=== PATIENT | female | born 1950 | race Caucasian/White ===

== ENCOUNTER 2020-07-25 17:45 | Observation (INO) | payer MEDICARE ==
[~2020-07-25] VITALS: Ht 160 cm; Wt 40.6 kg
--- NOTE | 2020-07-25 18:13 | NUR ---
PT C/O LLQ PAIN, PROBABLE HERNIA. PAIN INCREASING TODAY. HX OF SAME, NO SURGERIES.
[2020-07-25] MEDS ORDERED: MORPHINE SULFATE 4 MG/ML, 1ML ONE ×3 (18:29→20:39)
[2020-07-25] MEDS ORDERED: ONDANSETRON 2MG/ML, 2ML ONE (18:29)
[2020-07-25] MEDS ORDERED: ONDANSETRON 2MG/ML, 2ML IVPush ONE (18:30)
[2020-07-25] MEDS ORDERED: SODIUM CHLORIDE FLUSH 10ML SYR IVF ONE (18:30)
[2020-07-25] MEDS ORDERED: MORPHINE SULFATE 4 MG/ML, 1ML IVPush PRN (18:30)
[2020-07-25] MEDS ORDERED: PLEASE ENTER HEIGHT AND WEIGHT MC SCH (18:30)
[2020-07-25] MEDS: MORPHINE SULFATE 4 MG/ML, 1ML IVPush PRN ×4 (18:33→20:41)
--- NOTE | 2020-07-25 18:40 | NUR ---
PIV PLACED, LABS DRAWN. MEDS ADMIN PER JAN. PROVIDER OK TO GIVE MORPHINE 2MG IV INSTEAD OF 4MG IV, FOR PT SMALL SIZE AND DOESN'T USE ANY NARCOTICS.
--- NOTE | 2020-07-25 19:05 | NUR ---
BREAK RN: UA COLLECTED VIA STRAIGHT CATH. UA ORDERED PER PROTOCOL. PT REQUESTED SECOND MORPHINE 2MG. MEDS ADMIN PER JAN. PT PLACED IN TRENDELENBERG PER PROVIDER REQUEST. WARM BLANKETS PROVIDED. CAREGIVER AT BEDSIDE. REPORT GIVEN TO ROXIE DOUGLAS RN.
[2020-07-25 19:07] LABS: BASOPHILS # (AUTO) 0.03 x10^3/uL (0-0.1); BASOPHILS % (AUTO) 0 % (0-1); EOSINOPHILS # (AUTO) 0.04 x10^3/uL (0-0.4); EOSINOPHILS % (AUTO) 0 % (1-7); LYMPHOCYTES # (AUTO) 1.23 x10^3/uL (1-3.4); LYMPHOCYTES % (AUTO) 12 % (22-44); MD NO; MEAN CORPUSCULAR HEMOGLOBIN 29.5 pg (27.0-34.8); MEAN CORPUSCULAR VOLUME 89.3 fL (80-100); MEAN PLATELET VOLUME 7.5 fL (7.4-10.4); MONOCYTES % (AUTO) 3 % (2-9); NEUTROPHILS # (AUTO) 8.41 x10^3/uL (1.8-6.8); NEUTROPHILS % (AUTO) 84 % (42-75); PLATELET COUNT 527 x10^3/uL (130-400); RED BLOOD COUNT 4.49 x10^6/uL (3.82-5.3); RED CELL DISTRIBUTION WIDTH 14.4 % (9.6-15.2)
--- NOTE | 2020-07-25 19:09 | NUR ---
ASSUMED CARE OF PATIENT. REPORT GIVEN FROM YUDY MUNOZ
[2020-07-25 19:16] LABS: MICROSCOPIC AUTO
[2020-07-25 19:18] LABS: ALANINE AMINOTRANSFERASE 16 U/L (12-78); ALBUMIN 3.6 g/dL (3.4-5.0); ANION GAP 11 mmol/L (5-15); CALCIUM 9.2 mg/dL (8.5-10.1); CHLORIDE 101 mmol/L (98-107); CREATININE 0.54 mg/dL (0.55-1.02)
[2020-07-25 19:20] LABS: ALKALINE PHOSPHATASE 123 U/L (45-117); BILIRUBIN,TOTAL 0.4 mg/dL (0.2-1.0); TOTAL PROTEIN 8.1 g/dL (6.4-8.2)
--- NOTE | 2020-07-25 19:54 | NUR ---
PT MEDICATED FOR 7/10 PAIN. VS STABLE. PT WENT TO CT.
--- NOTE | 2020-07-25 20:31 | NUR ---
DR CANTRELL HAS UPDATED PATIENT.
--- NOTE | 2020-07-25 21:40 | NUR ---
PT USED BED HIGHTOWER. HERNIA WAS REDUCED BY DR CANTRELL. AWARE PT HAS A ELEVATED LACTIC, NO NEW ORDERS AT THIS TIME.
--- NOTE | 2020-07-25 22:30 | NUR ---
HOSPITALIST IN ROOM
[2020-07-25 22:46] VITALS: BP 114/69
[2020-07-25] MEDS ORDERED: OMNIPAQUE 350 MG/ML, 100ML BOTTLE ONE (23:11)
[2020-07-25] MEDS: KETOROLAC 30 MG/1 ML IV PRN (23:24)
[2020-07-25] MEDS ORDERED: LABETALOL 5MG/ML, 20ML IVPush PRN (23:30)
[2020-07-25] MEDS ORDERED: ONDANSETRON 2MG/ML, 2ML IVPush PRN (23:30)
[2020-07-25] MEDS ORDERED: POLYETHYLENE GLYCOL 17 GM PACKET PO PRN (23:30)
[2020-07-25] MEDS ORDERED: morphine SULFATE 10 MG/ML, 1ML IVPush PRN (23:30)
[2020-07-25] MEDS ORDERED: IBUP200C75 PO (23:34)
[2020-07-25] MEDS ORDERED: ACET325T14 PO (23:36)
[2020-07-25] MEDS ORDERED: VITA1TAB19 PO (23:37)
[2020-07-25] MEDS ORDERED: LUTE1CAP PO (23:39)
[2020-07-25] MEDS ORDERED: ZINC100T PO (23:41)
[2020-07-25] MEDS: LACTATED RINGERS 1,000 ML IV SCH (23:50)
[2020-07-26 00:55] VITALS: BP 108/65
[2020-07-26 05:35] LABS: ANION GAP 8 mmol/L (5-15); CALCIUM 8.7 mg/dL (8.5-10.1); CHLORIDE 103 mmol/L (98-107)
[2020-07-26 05:35] LABS: BASOPHILS # (AUTO) 0.03 x10^3/uL (0-0.1); BASOPHILS % (AUTO) 1 % (0-1); EOSINOPHILS # (AUTO) 0.13 x10^3/uL (0-0.4); EOSINOPHILS % (AUTO) 2 % (1-7); LYMPHOCYTES # (AUTO) 2.29 x10^3/uL (1-3.4); LYMPHOCYTES % (AUTO) 37 % (22-44); MD NO; MEAN CORPUSCULAR HEMOGLOBIN 28.9 pg (27.0-34.8); MEAN CORPUSCULAR HGB CONC 32.6 g/dL (32.4-35.8); MEAN CORPUSCULAR VOLUME 88.6 fL (80-100); MEAN PLATELET VOLUME 7.3 fL (7.4-10.4); MONOCYTES # (AUTO) 0.24 x10^3/uL (0.2-0.8); MONOCYTES % (AUTO) 4 % (2-9); NEUTROPHILS # (AUTO) 3.55 x10^3/uL (1.8-6.8); NEUTROPHILS % (AUTO) 57 % (42-75); PLATELET COUNT 444 x10^3/uL (130-400); RED BLOOD COUNT 3.78 x10^6/uL (3.82-5.3); RED CELL DISTRIBUTION WIDTH 14.3 % (9.6-15.2)
[2020-07-26] MEDS: KETOROLAC 30 MG/1 ML IV PRN (05:53)
[2020-07-26 07:42] VITALS: BP 126/69
[2020-07-26] MEDS: LACTATED RINGERS 1,000 ML IV SCH (08:12)
[2020-07-26] MEDS ORDERED: LACTATED RINGERS 1,000 ML IV SCH (13:00)
[2020-07-26 14:03] VITALS: BP 134/77
[2020-07-26] MEDS: ACETAMINOPHEN 325 MG TABLET PO PRN (14:43)
[2020-07-26 19:30] VITALS: BP 113/61
[2020-07-26] MEDS: HEPARIN 5,000 UNITS/ML, 1ML SQ SCH (20:30)
[2020-07-27 01:24] VITALS: BP 127/73
[2020-07-27] MEDS: HEPARIN 5,000 UNITS/ML, 1ML SQ SCH (04:30)
[2020-07-27 05:51] LABS: ALBUMIN 2.6 g/dL (3.4-5.0); ANION GAP 7 mmol/L (5-15); CALCIUM 8.4 mg/dL (8.5-10.1); CHLORIDE 104 mmol/L (98-107)
[2020-07-27 05:54] LABS: BASOPHILS # (AUTO) 0.02 x10^3/uL (0-0.1); BASOPHILS % (AUTO) 0 % (0-1); EOSINOPHILS # (AUTO) 0.14 x10^3/uL (0-0.4); EOSINOPHILS % (AUTO) 2 % (1-7); LYMPHOCYTES # (AUTO) 1.49 x10^3/uL (1-3.4); LYMPHOCYTES % (AUTO) 24 % (22-44); MD NO; MEAN CORPUSCULAR HEMOGLOBIN 29.4 pg (27.0-34.8); MEAN CORPUSCULAR HGB CONC 33.1 g/dL (32.4-35.8); MEAN CORPUSCULAR VOLUME 88.9 fL (80-100); MEAN PLATELET VOLUME 7.4 fL (7.4-10.4); MONOCYTES # (AUTO) 0.26 x10^3/uL (0.2-0.8); MONOCYTES % (AUTO) 4 % (2-9); NEUTROPHILS # (AUTO) 4.19 x10^3/uL (1.8-6.8); NEUTROPHILS % (AUTO) 69 % (42-75); PLATELET COUNT 409 x10^3/uL (130-400); RED BLOOD COUNT 3.58 x10^6/uL (3.82-5.3); RED CELL DISTRIBUTION WIDTH 14.4 % (9.6-15.2)
[2020-07-27 05:55] LABS: ALANINE AMINOTRANSFERASE 11 U/L (12-78); ALKALINE PHOSPHATASE 91 U/L (45-117); BILIRUBIN,TOTAL 0.4 mg/dL (0.2-1.0); CREATININE 0.38 mg/dL (0.55-1.02)
[2020-07-27] MEDS ORDERED: POLY17PO5 PO (07:45)
[2020-07-27] MEDS: ACETAMINOPHEN 325 MG TABLET PO PRN (08:08)
[2020-07-27 08:11] VITALS: BP 137/79
== END 2020-07-27 11:50 | disposition home or self-care (01) ==
LOC: ED 19:30 → INTOOBSV 21:27 → EDIP 21:27 → 4NW 22:44 → 4NE 07-26 05:45 → DCLOUNGE 07-27 11:48
PROVIDERS: ADMIT Family Medicine; ATTEND Internal Medicine
DX: K56.600 Partial intestinal obstruction, unspecified as to cause (principal); K41.90 Unilateral femoral hernia, without obstruction or gangrene, not specified as recurrent; M06.9 Rheumatoid arthritis, unspecified; N83.8 Other noninflammatory disorders of ovary, fallopian tube and broad ligament; D73.5 Infarction of spleen; D47.3 Essential (hemorrhagic) thrombocythemia; R74.0 Nonspecific elevation of levels of transaminase and lactic acid dehydrogenase [LDH]; E87.1 Hypo-osmolality and hyponatremia; E43 Unspecified severe protein-calorie malnutrition; M41.9 Scoliosis, unspecified; Z79.899 Other long term (current) drug therapy; Z68.1 Body mass index [BMI] 19.9 or less, adult
CPT/HCPCS: 36415; 74177; 80048; 80053; 81001; 83605; 83690; 83735; 84100; 85025; 96361; 96374; 96375; 96376; 97162; 99285; G0378; J1885; J2270; J2405; J7120; Q9967

== ENCOUNTER 2020-11-11 09:11 | Emergency (ER) | payer MEDICARE ==
[~2020-11-11] VITALS: Ht 157.5 cm; Wt 41.8 kg
[~2020-11-11 09:11] MED LIST: ACET325T14 PO; IBUP200C75 PO; LUTE1CAP PO; POLY17PO5 PO; VITA1TAB19 PO; ZINC100T PO
[2020-11-11 09:12] VITALS: BP 150/75
== END 2020-11-11 10:04 | disposition home or self-care (01) ==
LOC: ED 09:45
DX: K40.91 Unilateral inguinal hernia, without obstruction or gangrene, recurrent (principal); M19.90 Unspecified osteoarthritis, unspecified site; R10.33 Periumbilical pain
CPT/HCPCS: 99283

== ENCOUNTER 2021-05-11 21:48 | Emergency (ER) | payer MEDICARE ==
[~2021-05-11] VITALS: Ht 154.9 cm; Wt 45.5 kg
--- NOTE | 2021-05-11 22:28 | NUR ---
ERP ABLE TO REDUCE HERNIA AT BEDSIDE. PT STATES FEELING MUCH BETTER. PO ROAD TEST AT THIS TIME. PT PROVIDED MINT TEA AND SOME CRACKERS
[2021-05-11 22:29] VITALS: BP 132/70
--- NOTE | 2021-05-11 22:45 | NUR ---
PT TOLERATING PO FLUIDS AND FOOD AT THIS TIME
--- NOTE | 2021-05-11 23:06 | NUR ---
pt ambulated to restroom with walker, basline for pt
== END 2021-05-11 23:24 | disposition home or self-care (01) ==
LOC: ED 21:57
DX: K41.91 Unilateral femoral hernia, without obstruction or gangrene, recurrent (principal)
CPT/HCPCS: 99283

== ENCOUNTER 2021-06-01 12:40 | Emergency (ER) | payer MEDICARE ==
[~2021-06-01] VITALS: Ht 157.5 cm; Wt 44.0 kg
--- NOTE | 2021-06-01 13:19 | NUR ---
two hours ago hernia popped out causing pain and nausea
[2021-06-01] MEDS ORDERED: MORPHINE SULFATE 4 MG/ML, 1ML ONE ×2 (13:47→14:29)
[2021-06-01] MEDS ORDERED: ONDANSETRON 2MG/ML, 2ML ONE (13:47)
[2021-06-01] MEDS: MORPHINE SULFATE 4 MG/ML, 1ML IVPush PRN ×2 (13:49→14:30)
[2021-06-01] MEDS ORDERED: ONDANSETRON 2MG/ML, 2ML IVPush ONE (14:00)
[2021-06-01] MEDS ORDERED: SODIUM CHLORIDE FLUSH 10ML SYR IVF ONE (14:00)
[2021-06-01] MEDS ORDERED: MORPHINE SULFATE 4 MG/ML, 1ML IVPush ONE (14:30)
--- NOTE | 2021-06-01 14:35 | NUR ---
patient in bed, rails up on monitor. continues to have pain for procedure, medicated again. patient aox4, sister at bedside.
[2021-06-01 14:51] VITALS: BP 144/78
--- NOTE | 2021-06-01 14:52 | NUR ---
PATIENT DISCHARGE REVIEWED. SHOWS UNDERSTANDING
== END 2021-06-01 15:03 | disposition home or self-care (01) ==
LOC: ED 13:00
DX: K40.91 Unilateral inguinal hernia, without obstruction or gangrene, recurrent (principal); M06.9 Rheumatoid arthritis, unspecified
CPT/HCPCS: 74021; 96374; 96375; 96376; 99284; J2270; J2405